=== PATIENT | male | born 1990 | race African-American/Black ===

== ENCOUNTER 2018-11-10 06:27 | Emergency (ER) | payer OTHER ==
[~2018-11-10] VITALS: Ht 185.4 cm; Wt 132.0 kg
[~2018-11-10 06:27] MED LIST: ADVIL200 M1 OR; AMOXICILLIN500 MG PO; DENIES CURRENT MEDS; ULTRAM50 M1 PO
[2018-11-10 07:01] VITALS: BP 136/83
== END 2018-11-10 07:05 | disposition home or self-care (01) | DRG 605 ==
LOC: ED 06:27
PROC: 0HQ1XZZ Repair Face Skin, External Approach (ICD-10-PCS; principal; 2018-11-10)
DX: S01.412A Laceration without foreign body of left cheek and temporomandibular area, initial encounter (principal); F17.210 Nicotine dependence, cigarettes, uncomplicated; W22.8XXA Striking against or struck by other objects, initial encounter